=== PATIENT | male | born 1945 | race Caucasian/White ===

== ENCOUNTER 2017-09-26 11:55 | Emergency (ER) | payer MEDICARE ==
[2017-09-26 12:08] VITALS: BP 127/78
[2017-09-26] MEDS ORDERED: Aspirin Low Dose CHEW TAB* 81 MG PO ONE (12:53)
--- NOTE | 2017-10-11 08:55 | UC ---
Katlyn Zayas Thomas, scribed for Sarah Sharma DO on 09/26/17 at 1213 . Cardiac HPI - HPI Summary HPI Summary: The pt is a 72 y/o M c/o palpitations characterized as skipped beats that began last night. The palpitations have improved since onset although they are still present. PMHx includes LA about 6-7 years ago. During his previous LA, he had similar palpitations. Last night, the patient felt dizzy (although he denies dizziness at urgent care). The patient did not sleep well last night. At urgent care, he denies SOB, nausea, diaphoresis, and CP. Patient also denies sore throat, ear pain, eye discharge, rashes, recent confusion and unsteady gait. The patient was referred to urgent care from the office of his manager federal Dr. Beckham. - History of Current Complaint Chief Complaint: UCChestPain Stated Complaint: HEART SKIPPING Time Seen by Provider: 09/26/17 12:05 Hx Obtained From: Patient Onset/Duration: Lasting Hours - onset last night, Still Present Timing: Constant Initial Severity: Moderate Current Severity: Mild Pain Intensity: 0 - NO CHEST PAIN Character: Fast, Irregular, Skipped Beats Aggravating Factor(s): Nothing Alleviating Factor(s): Nothing Associated Signs & Symptoms: Positive: Dizziness - resolved, Palpitations - resolved. Negative: Chest Pain, SOB - Risk Factors Cardiac Risk Factors: Hypertension, Family History, Prior LA, CAD Atrial Fibrillation: Hypertension AMI/ACS Risk Factors: Myocardial Infarction, Family History, Hypertension - Allergy/Home Medications Allergies/Adverse Reactions: Allergies Allergy/AdvReac Type Severity Reaction Status Date / Time Penicillins Allergy Severe Anaphylatic Verified 10/04/17 10:49 Shock Atorvastatin [From Lipitor] Allergy Unknown Verified 10/04/17 10:49 Reaction Details Simvastatin Allergy Unknown Verified 10/04/17 10:49 Reaction Details Meperidine [From Demerol HCl] AdvReac Mild Vomiting Verified 10/04/17 10:49 Home Medications: Home Medications [place] TAB* [[place]ekturna TAB*] 1 tab PO DAILY 09/26/17 [History Confirmed ] Eszopiclone [Lunesta] 3 mg PO BEDTIME 09/26/17 [History Confirmed 09/26/17] Sildenafil Citrate [Viagra] 1 tab PO DAILY PRN 09/26/17 [History Confirmed 09/26] PMH/Surg Hx/FS Hx/Imm Hx Previously Healthy: No - NEGATIVE PMHX: DM Cardiovascular History: Hypertension, Myocardial Infarction GI/ History: Gastroesophageal Reflux - Surgical History Surgical History: Yes Surgery Procedure, Year, and Place: prostate 2006,ankle arthroscopy,knee arthroscopy, t&A, - Family History Known Family History: Positive: Cardiac Disease, Other - LA - Social History Occupation: Retired Alcohol Use: Occasionally Alcohol Amount: 1 DRINK Substance Use Type: None Smoking Status (MU): Former Smoker - Immunization History Most Recent Influenza Vaccination: 08/2017 Review of Systems Constitutional: Other - NEGATIVE: fever. Cardiovascular: Palpitations Neurological: Other - Dizziness (yesterday) Is Patient Immunocompromised?: No All Other Systems Reviewed And Are Negative: Yes Physical Exam Triage Information Reviewed: Yes Appearance: Well-Appearing, No Pain Distress, Well-Nourished Vital Signs: Initial Vital Signs Temp 98.2 F 09/26/17 12:01 Pulse 66 09/26/17 12:01 Resp 16 09/26/17 12:01 BP 127/78 09/26/17 12:01 Pulse Ox 99 09/26/17 12:01 Vital Signs Reviewed: Yes Eyes: Positive: Conjunctiva Clear. Negative: Discharge ENT: Positive: Hearing grossly normal. Negative: Muffled voice Neck exam: Normal Neck: Positive: Supple Respiratory: Positive: Lungs clear, Normal breath sounds, No respiratory distress, No accessory muscle use Cardiovascular: Positive: RRR, No Murmur Musculoskeletal Exam: Normal Neurological: Positive: Alert, Muscle Tone Normal Psychological Exam: Normal Psychological: Positive: Age Appropriate Behavior Skin Exam: Normal Skin: Positive: Other - Warm, dry, normal color Diagnostics - Laboratory Diagnostic Studies Completed/Ordered: EKG: Obtained at 12:09. Rate: Normal at [address] elevations in V2 and V3. Q waves in the anterior leads. - Assessment/Plan Course Of Treatment: Medications reviewed this visit. - Differential Diagnoses - Chest Pain Differential Diagnosis/HQI/PQRI: Acute LA, ACS - Differential Diagnoses - Hypertension Differential Diagnosis/HQI PQRI: Hypertension, Myocardial Infarction - Clinical Impression Provider Diagnoses: atypical cp r/o acs Discharge - Discharge Plan Condition: Stable Disposition: TRANS HIGHER LVL OF CARE FAC Referrals: Yasmeen Mohan MD [Primary Care Provider] - The documentation as recorded by the Katlyn helton Thomas accurately reflects the service I personally performed and the decisions made by me, Sarah Sharma DO.
== END 2017-09-26 13:12 | disposition short-term general hospital (02) ==
LOC: UCEAST 11:55
DX: R07.89 Other chest pain (principal); I25.2 Old myocardial infarction; I10 Essential (primary) hypertension; K21.9 Gastro-esophageal reflux disease without esophagitis; Z88.5 Allergy status to narcotic agent; Z88.0 Allergy status to penicillin; Z88.8 Allergy status to other drugs, medicaments and biological substances; Z87.891 Personal history of nicotine dependence
CPT/HCPCS: 93005; 99213; A9270-GY; G0463

== ENCOUNTER 2018-04-20 15:33 | Emergency (ER) | payer MEDICARE ==
[2018-04-20] MEDS ORDERED: Ketorolac INJ* 60 MG/2 ML VIAL IM ONE (17:07)
--- NOTE | 2018-04-20 18:29 | ED ---
Lower Extremity - HPI Summary HPI Summary: Complains of pain behind left knee extending into calf 3 weeks, and possible left-sided dropfoot. Patient had MRI of left lower extremity that appears to evaluate only upper portion of left lower extremity, which is NEG. Patient denies trauma, fever, N/V, redness/swelling to the knee, loss of sensation or function distally in left lower extremity. Pain is constant, worse with palpation, improved by nothing. Denies history of blood clots. No anti-coag. - History of Current Complaint Chief Complaint: EDBackInjuryPain Stated Complaint: LEG PAIN Time Seen by Provider: 04/20/18 16:10 Hx Obtained From: Patient Pain Intensity: 10 - Allergies/Home Medications Allergies/Adverse Reactions: Allergies Allergy/AdvReac Type Severity Reaction Status Date / Time Penicillins Allergy Severe Anaphylatic Verified 04/20/18 15:42 Shock atorvastatin [From Lipitor] AdvReac Muscle Ache Verified 04/20/18 15:42 meperidine [From Demerol] AdvReac Vomiting Verified 04/20/18 15:42 simvastatin AdvReac Muscle Ache Verified 04/20/18 15:42 Home Medications: Home Medications Metoprolol Succinate XL TAB* [Toprol XL TAB*] 50 mg PO DAILY 04/20/18 [History Confirmed 04/20/18] Pravastatin (NF) [Pravachol (NF)] 80 mg PO DAILY 04/20/18 [History Confirmed 02/02] PMH/Surg Hx/FS Hx/Imm Hx Endocrine/Hematology History: Denies: Hx Diabetes, Hx Thyroid Disease Cardiovascular History: Reports: Hx Coronary Artery Disease, Hx Hypertension - ON MEDS, Other Cardiovascular Problems/Disorders - 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 T & A. 2012 LUMBAR ( UNSURE OF WHAT THE EXACT SURG WAS). Rt KNEE - CARTILAGE. - Immunization History Date of Tetanus Vaccine: 2011 Date of Influenza Vaccine: Fall 2013 Infectious Disease History: No Infectious Disease History: Denies: Hx Hepatitis, Hx Human Immunodeficiency Virus (HIV), Traveled Outside the [place] in Last 30 Days - Family History Known Family History: Negative: Diabetes - Social History Alcohol Use: Weekly Alcohol Amount: 1x week Substance Use Type: Reports: None Smoking Status (MU): Former Smoker Review of Systems Constitutional: Negative Eyes: Negative ENT: Negative Cardiovascular: Negative Respiratory: Negative Gastrointestinal: Negative Genitourinary: Negative Positive: Arthralgia, Myalgia Skin: Negative Neurological: Negative Psychological: Normal All Other Systems Reviewed And Are Negative: Yes Physical Exam - Summary Physical Exam Summary: No indication of drop foot. Patient is reluctant to dorsiflex or plantar flex due to pain in left knee, but can do so. Ambulates normally. PMS intact distally. No redness, swelling, ecchymosis, extra warmth, deformity noted to left knee, left calf, left ankle. Full range of motion of left knee. Tenderness to palpation in posterior knee joint, mild tenderness to palpation in left calf. Calf soft, nonresistant. Triage Information Reviewed: Yes Vital Signs On Initial Exam: Initial Vitals Temp Pulse Resp BP Pulse Ox 97.8 F 73 16 101/71 99 04/20/18 15:36 04/20/18 15:36 04/20/18 15:36 04/20/18 15:36 04/20/18 15:36 Vital Signs Reviewed: Yes Appearance: Positive: Well-Appearing Skin: Positive: Warm Head/Face: Positive: Normal Head/Face Inspection Eyes: Positive: Normal Neck: Positive: Supple Respiratory/Lung Sounds: Positive: Clear to Auscultation Cardiovascular: Positive: Normal Abdomen Description: Positive: Nontender Musculoskeletal: Positive: Other Neurological: Positive: Normal Psychiatric: Positive: Normal AVPU Assessment: Alert - Dimitris Coma Scale Best Eye Response: 4 - Spontaneous Best Motor Response: 6 - Obeys Commands Best Verbal Response: 5 - Oriented Coma Scale Total: 15 Diagnostics - Vital Signs Vital Signs Temp Pulse Resp BP Pulse Ox 04/20/18 15:36 97.8 F 73 16 101/71 99 - Laboratory Lab Statement: Any lab studies that have been ordered have been reviewed, and results considered in the medical decision making process. Lower Extremity Course/Dx - Course Course Of Treatment: Complains of pain behind left knee extending into calf 3 weeks, and possible left-sided dropfoot. Patient had MRI of left lower extremity that evaluated only hamstrings, which were intact. Patient denies trauma, fever, N/V, loss of sensation or function distally in left lower extremity. Denies history of blood clots. No anti-coag. No indication of drop foot. Patient is reluctant to dorsiflex or plantar flex due to pain in left knee, but can do so. Ambulates normally. PMS intact distally. No redness , swelling, ecchymosis, extra warmth, deformity noted to left knee, left calf, left ankle. Full range of motion of left knee. Tenderness to palpation in posterior knee joint, mild tenderness to palpation in left calf. Calf soft, nonresistant. Ultrasound negative for DVT. Prescription for hydrocodone and follow-up with ortho - Diagnoses Provider Diagnoses: Posterior left knee pain Discharge - Sign-Out/Discharge Documenting (check all that apply): Discharge/Admit/Transfer - Discharge Plan Condition: Stable Disposition: HOME Prescriptions: HYDROcodone/ACETAMIN 5-325 MG* [[place] 5-325 TAB*] 1 tab PO Q6H PRN 2 Days #10 tab MDD 4-5 tabs PRN Reason: Pain Patient Education Materials: Knee Pain (ED) Referrals: Yasmeen Mohan MD [Primary Care Provider] - Additional Instructions: Take tylenol and ibuprofen together for pain. Follow-up with your soil science technical officer Dr. Diaz for further evaluation of left knee. Return to the ED for any new or worsening symptoms - Billing Disposition and Condition Condition: STABLE Disposition: HOME
--- NOTE | 2018-04-20 18:37 | RAD ---
INDICATION: Posterior LEFT knee and calf pain. Difficulty walking for 3 weeks. No erythema or swelling. MRI negative for hamstring muscle or tendon tear. COMPARISON: No relevant prior exams available on the [facility] for comparison. TECHNIQUE: Light scale, color Doppler, and spectral analysis of the deep veins of the LEFT lower extremity. Vessel compression, phasicity, and augmentation assessed. REPORT: The LEFT common femoral, great saphenous, profunda femoral, femoral, popliteal, peroneal, and posterior tibial veins are patent. Patency of the RIGHT common femoral vein documented. IMPRESSION: No evidence for LEFT lower extremity deep venous thrombosis.
[2018-04-20] MEDS ORDERED: HYDROcodone/ACETAMIN 5-325 MG* 1 TAB PO ONE (19:13)
[2018-04-20 19:35] VITALS: BP 124/77
== END 2018-04-20 19:35 | disposition home or self-care (01) ==
LOC: ED 15:33
DX: M25.562 Pain in left knee (principal); M79.662 Pain in left lower leg; I10 Essential (primary) hypertension; I25.10 Atherosclerotic heart disease of native coronary artery without angina pectoris; Z79.899 Other long term (current) drug therapy; Z85.46 Personal history of malignant neoplasm of prostate; Z92.3 Personal history of irradiation; Z87.891 Personal history of nicotine dependence; Z88.0 Allergy status to penicillin; Z88.5 Allergy status to narcotic agent; Z88.8 Allergy status to other drugs, medicaments and biological substances
CPT/HCPCS: 96372; 99282; J1885